=== PATIENT | male | born 1940 | race Caucasian/White ===

== ENCOUNTER → 2020-09-06 08:49 | Outpatient (CLI) | payer MEDICARE, SELFPAY ==
--- NOTE | ~2020-09-06 | CT_ITS ---
EXAMINATION: CT abdomen pelvis wo/w con DATE: 09/06/2020 09:37 INDICATION: Gross hematuria TECHNIQUE: Computed tomography (CT) of the abdomen and pelvis was performed without and subsequently with 130 cc Omnipaque 350 intravenous contrast. Automated exposure control and iterative reconstructi on technique were employed. Exam dose: 1551.80 mGy-cm total exam DLP. COMPARISON: None. FINDINGS: Bilateral small fat-containing foramen of Bochdalek hernias. Minimal bilateral dependent lower lobe atelectasis. Mild discoid atelectasis or scarring at the base of the lingula. No infiltrate or consolidation at the lung bases. Cardiomegaly. Coronary artery atherosclerotic calcification. Trace pericardial fluid. No pleural effu joyce. 1.3 cm hepatic cyst. The gallbladder is present. No bile duct or pancreatic duct dilatation. 2 cm prominently calcified upper anterior pole left right renal calcified lesion. 5 cm upper pole right renal cyst and multiple smaller right renal cysts.. 2 cm lower pole left renal cyst, occasional smaller left renal cysts. There are 2 pinpoint nonobstructing calculi of the right kidney and one pinpoint nonobstructing calcu anna of the left kidney. Normal caliber and atherosclerotic calcification of the abdominal aorta. No abdominal aortic aneurysm . No intraperitoneal or retroperitoneal or pelvic mass lesion or adenopathy or ascites. Prominent pro state enlargement impressing the base of the urinary bladder. Moderate diffuse bladder wall thickenin g. Normal appendix. Mild diverticulosis of the colon; no CT evidence of diverticulitis. No bowel obstruc tion, bowel wall thickening, pneumatosis or intraperitoneal free air. Moderately severe degenerative disc disease at L3-4. Degenerative changes apophyseal joints with associated grade 1 anterolisthesis at L4-5. No suspicious osteolytic or osteoblastic lesions are noted. IMPRESSION: Multiple bilateral renal cysts Probable benign primarily calcified 2 cm upper pole right renal lesion 1.3 cm hepatic cyst Mild bilateral nonobstructive punctate nephrolithiasis Prominent prostate enlargement and associated moderate diffuse bladder wall thickening Diverticulosis of the colon; no CT evidence of diverticulitis Reviewed, dictated and finalized at [facility]. Reviewed, dictated and finalized at location A. IMPRESSION: Multiple bilateral renal cysts Probable benign primarily calcified 2 cm upper pole right renal lesion 1.3 cm hepatic cyst Mild bilateral nonobstructive punctate nephrolithiasis Prominent prostate enlargement and associated moderate diffuse bladder wall thi ckening Diverticulosis of the colon; no CT evidence of diverticulitis
[2020-09-06 09:13] LABS: Estimated Glomerular Filt Rate > 60
== END ==
PROVIDERS: PCP Family Medicine Adolescent Medicine; Visit Provider Urology
DX: R31.0 Gross hematuria (principal); N28.1 Cyst of kidney, acquired; K76.89 Other specified diseases of liver; N20.0 Calculus of kidney; N40.0 Benign prostatic hyperplasia without lower urinary tract symptoms; R93.41 Abnormal radiologic findings on diagnostic imaging of renal pelvis, ureter, or bladder; K57.90 Diverticulosis of intestine, part unspecified, without perforation or abscess without bleeding
CPT/HCPCS: 74178; Q9967

== ENCOUNTER → 2020-12-04 09:44 | Outpatient (CLI) | payer MEDICARE, SELFPAY ==
--- NOTE | ~2020-12-04 | MR_ITS ---
EXAMINATION: MR abdomen wo/w con INDICATION: Acquired cyst of the kidney, gross hematuria TECHNIQUE: Coronal SSFSE ARC, WATER:coronal LAVA-FLEX, Coronal 2D FIESTA FatSat, Axial SSFSE BH ARC, Axial 3D DualEcho BH, Axial SSFSE-IR, Axial DWI b=500, Axial 2D FIESTA FatSat, pre and dynamic postco ntrast Axial LAVA ARC, postcontrast Coronal In and Opposed phase LAVA FLEX COMPARISON: CT, 09/06/2020 CONTRAST: Multihance, 15 cc FINDINGS: The visualized lung bases are clear. The heart size is normal. There is a 12 mm cyst of the right hepatic lobe. The spleen, pancreas, gallbladder, and left adrenal gland are normal. There is a 10 mm mass of the left adrenal gland with loss of signal intensity on opposed phase imaging, consist ent with an adenoma. There are multiple cysts of the kidneys many of which are simple. Small bilatera l hemorrhagic cysts are seen which measure up to 9 mm on the left. There is a 1.8 cm peripherally jaylen cified cyst of the right kidney upper pole which does not demonstrate definite internal enhancement a fter contrast administration. There are no pathologically enlarged abdominal lymph nodes. No dilated loops of bowel are evident. IMPRESSION: 1. 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 Follow-up MRI without and with contrast in six months is recommended. Reviewed, dictated and finalized at location B.
[2020-12-04 10:37] LABS: Estimated Glomerular Filt Rate > 60
== END ==
PROVIDERS: PCP Family Medicine Adolescent Medicine; Visit Provider Urology
DX: N28.1 Cyst of kidney, acquired (principal)
CPT/HCPCS: 74183; A9577

== ENCOUNTER → 2021-06-25 09:27 | Outpatient (CLI) | payer MEDICARE, SELFPAY ==
--- NOTE | ~2021-06-25 | MR_ITS ---
EXAMINATION: MR abdomen wo/w con DATE: 06/25/2021 10:53 INDICATION: Right kidney mass. TECHNIQUE: Magnetic resonance imaging (MRI) of the abdomen was performed without and with 15 mL Multi Makenzie intravenous contrast. Sequences included coronal T2-weighted FS FSE, coronal and axial FIESTA F S, coronal LAVA-flex, axial LAVA, axial T2-weighted FSE, axial T1-weighted dual-echo FSPGR, axial STI R FSE, and axial DWI. Postcontrast sequences included coronal LAVA-flex and a time course of axial LA VA. COMPARISON: Abdomen MRI 12/04/2020, CT abdomen and pelvis 09/06/2020 FINDINGS: There is a 16 mm cyst of the liver. The gallbladder is normal. Again seen are multiple masses in the spleen measuring up to 8 mm, likely benign. The gallbladder, pancreas, and left adrenal gland are nor mal. There is a 10 mm mass in right adrenal gland containing microscopic fat, consistent with an ceci ranjit. There are cysts in the kidneys measuring up to 5.4 cm on the right. In the right kidney, there i s a 1.8 cm mass with thick calcifications without contrast enhancement. There are hemorrhagic cysts i n the kidneys measuring up to 11 mm on the left. There are no pathologically enlarged lymph nodes. Th ere are no dilated loops of bowel. There is no free intraperitoneal fluid. IMPRESSION: 1. 1.8 cm Bosniak IIF cystic lesion of right kidney, stable from 12/04/2020. Abdomen MRI without and with contrast is recommended in 6 months. Reviewed, dictated and finalized at location E. [employer] IMPRESSION: 1. 1.8 cm Bosniak IIF cystic lesion of right kidney, stable from 12/04/2020. Ab domen MRI without and with contrast is recommended in 6 months.
[2021-06-25 10:12] LABS: Estimated Glomerular Filt Rate > 60
== END ==
PROVIDERS: PCP Family Medicine Adolescent Medicine; Visit Provider Urology
DX: N28.1 Cyst of kidney, acquired (principal)
CPT/HCPCS: 74183; A9577

== ENCOUNTER → 2022-01-02 10:43 | Outpatient (CLI) | payer MEDICARE, SELFPAY ==
--- NOTE | ~2022-01-02 | US_ITS ---
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 COMPARISON: MRI, 06/25/2021 FINDINGS: The right kidney measures 11.1 x 5.9 x 6.3 cm and contains a 4.9 cm cyst in the upper pole. The right kidney mass described on the comparison MRI is not definitely demonstrated. The left kidne y measures 13.4 x 5.7 x 6.1 cm and contains cysts measuring up to 2.5 cm. The kidneys demonstrate nor mal parenchymal echogenicity. The prostate is enlarged. There is no hydronephrosis. The bladder is no rmal. IMPRESSION: 1. 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 Follow-up by CT or MRI without and with contrast would provide a more direct comparison. Reviewed, dictated and finalized at location A. IMPRESSION: 1. Previously described Bosniak IIF lesion of the right kidney not definitely d emonstrated, more likely due to differences in technique given the MR and CT fe atures of the mass rather than interval resolution. Follow-up by CT or MRI with out and with contrast would provide a more direct comparison.
== END ==
PROVIDERS: PCP Family Medicine Adolescent Medicine; Visit Provider Urology
DX: N28.1 Cyst of kidney, acquired (principal)
CPT/HCPCS: 76775

== ENCOUNTER 2022-01-22 09:05 | Outpatient (CLI) | payer MEDICARE, SELFPAY ==
[2022-01-22 09:42] LABS: Anion Gap 7 mmol/L (8-16); Blood Urea Nitrogen 25 mg/dL (9-20); Calcium 9.3 mg/dL (8.4-10.2); Carbon Dioxide 28 mmol/L (22-30); Chloride 105 mmol/L (98-107); Estimated Glomerular Filt Rate > 60; Glucose 87 mg/dL (65-110); Potassium 4.3 mmol/L (3.4-5.0); Sodium 140 mmol/L (137-145)
== END 2022-01-22 09:06 | disposition home or self-care (01) ==
LOC: ANHLAB 09:08
PROVIDERS: PCP Family Medicine Adolescent Medicine; Visit Provider Urology
DX: N28.1 Cyst of kidney, acquired (principal)
CPT/HCPCS: 36415; 80048

== ENCOUNTER 2022-01-23 08:40 | Outpatient (CLI) | payer MEDICARE, SELFPAY ==
--- NOTE | ~2022-01-23 | CT_ITS ---
EXAMINATION: CT abdomen wo/w con DATE: 01/23/2022 09:13 INDICATION: Renal cyst TECHNIQUE: Computed tomography (CT) of the abdomen and pelvis was performed without and with 100 mL O mnipaque-350 intravenous contrast. Automated exposure control and iterative reconstruction technique were employed. The dose-length product was 756.34 mGy-cm. COMPARISON: MRI dated 07/05/[address] dated 09/06/2020 FINDINGS: Mild discoid atelectasis at the posterior sulci of the bilateral lower lobes. Small bilateral posteri or fat-containing Bochdalek hernias. Cardiomegaly. Atherosclerotic coronary artery calcification. No pericardial or pleural effusion. 1.7 cm hepatic cyst. There are few tiny splenic calcifications consi stent with old granulomatous disease. No interval change in a couple subtle subcentimeter low-attenua tion lesions in the spleen, likely benign. Gallbladder, pancreas and left adrenal gland are normal. U nchanged 1 cm right adrenal adenoma with characteristic signal dropout on opposed phase imaging on pr ior MRI. Multiple bilateral low-attenuation nonenhancing renal cysts, the largest measuring 5.6 cm th e upper pole of the right kidney. A couple hyperdense proteinaceous/hemorrhagic cysts measuring 8 mm at the interpolar region of the left kidney and 5 mm at the lower pole of the right kidney. Unchanged 1.8 cm exophytic lesion at the upper pole of the left kidney with dense peripheral coarse calcificat ion without definitive enhancing solid component. A few <2 mm nonobstructing stones in a middle calyx of the right kidney and at a couple lower pole calyces of the left kidney. No hydronephrosis. There are few scattered colonic diverticula without adjacent inflammatory change to suggest diverticulitis. No bowel obstruction. Visualized portion of the appendix is normal. No pathologically enlarged abdom inal or pelvic pelvic lymphadenopathy. Moderate lumbar spondylosis. IMPRESSION: 1. No interval change in a Bosniak 2F 1.8 cm cystic lesion at the upper pole of the right kidney with peripheral thick coarse calcifications. 2. Bilateral nonobstructing nephrolithiasis. Reviewed, dictated and finalized at location A.
== END 2022-01-23 08:41 | disposition home or self-care (01) ==
PROVIDERS: PCP Family Medicine Adolescent Medicine; Visit Provider Urology
DX: N20.0 Calculus of kidney (principal); K44.9 Diaphragmatic hernia without obstruction or gangrene; I25.10 Atherosclerotic heart disease of native coronary artery without angina pectoris; I51.7 Cardiomegaly; M47.816 Spondylosis without myelopathy or radiculopathy, lumbar region
CPT/HCPCS: 74170; Q9967

== ENCOUNTER 2022-09-26 10:11 | Outpatient (CLI) | payer MEDICARE, SELFPAY ==
--- NOTE | ~2022-09-26 | US_ITS ---
EXAMINATION: US retroperitoneal duplex ltd DATE: 09/26/2022 12:38 CDT INDICATION: Essential hypertension. TECHNIQUE: Sonographic imaging of the kidneys was performed with a 3.5 MHz transducer. Retroperitone al duplex sonogram of the renal arteries also obtained. FINDINGS: No focal flow abnormalities are seen in the renal arteries on color Doppler. The peak syst olic velocity ranges of the right and left renal arteries and aorta are 72 cm per second, 86 cm per s econd, and 122 cm per second, respectively. The velocities and renal to aortic ratios are within norm al limits. IMPRESSION: 1. No Doppler evidence of renal artery stenosis. Reviewed, dictated and finalized at location L.
== END 2022-09-26 10:12 | disposition home or self-care (01) ==
PROVIDERS: PCP Family Medicine Adolescent Medicine; Visit Provider Family Medicine Adolescent Medicine
DX: I10 Essential (primary) hypertension (principal)
CPT/HCPCS: 93976

== ENCOUNTER → 2023-02-05 10:11 | Outpatient (CLI) | payer MEDICARE, SELFPAY ==
--- NOTE | ~2023-02-05 | CT_ITS ---
CT of the Abdomen: Indication: Renal cyst Technique: 2.5 mm axial scans were obtained through the abdomen prior to and following intravenous a dministration of 100 cc of Omnipaque 350. Dose reduction technique was used on this scan by utilizing automated exposure control and iterative reconstruction technique. The dose-length product (DLP) was 878.65 mGy-cm. COMPARISON: 01/23/2022 Findings: Scans through the lung bases are unremarkable. Small hepatic cyst present. The spleen, pancreas, and gallbladder are within normal limits. Small sivan ateral adrenal nodules are stable from prior exam. Bilateral renal cysts are present, stable from juwan or exam. There is one cyst or other lesion at the upper pole the right kidney with large coarse calci fications, unchanged. Punctate nonobstructing bilateral renal stones are noted. There are atheroscler otic calcifications of the aorta. No lymphadenopathy. Visualized bowel loops are unremarkable. No ascites. Impression: Stable benign-appearing bilateral renal cystic lesions. Punctate nonobstructing bilateral renal stones. Reviewed, dictated and finalized at [facility]. Impression: Stable benign-appearing bilateral renal cystic lesions. Punctate nonobstructing bilateral renal stones.
[2023-02-05 10:31] LABS: Estimated Glomerular Filt Rate > 60
== END ==
PROVIDERS: PCP Family Medicine Adolescent Medicine; Visit Provider Urology
DX: N28.1 Cyst of kidney, acquired (principal); N20.0 Calculus of kidney
CPT/HCPCS: 74170; Q9967

== ENCOUNTER 2023-10-17 08:47 | Outpatient (CLI) | payer MEDICARE, SELFPAY ==
--- NOTE | ~2023-10-17 | XR_ITS ---
XR knee LT min 4V 10/17/2023 09:01 Indication: Left knee pain Procedure: 4 views left knee Comparison: No prior studies for comparison. Findings: There is a joint effusion. There is moderate-severe tricompartment osteoarthritis of the le ft knee. No foreign bodies. 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 Reviewed, dictated and finalized at location B. Impression: 1: Moderate-severe tricompartment osteoarthritis of the left knee, most advance d in the medial compartment.
== END 2023-10-17 08:48 ==
LOC: MICIMG 08:48
PROVIDERS: PCP Orthopaedic Surgery; Visit Provider Family Medicine Adolescent Medicine
DX: M17.12 Unilateral primary osteoarthritis, left knee (principal)
CPT/HCPCS: 73564

== ENCOUNTER 2024-02-19 18:20 | Emergency (ER) | payer MEDICARE, SELFPAY ==
--- NOTE | ~2024-02-19 | CT_ITS ---
EXAMINATION: CT facial & cervical spine wo DATE: 02/19/2024 20:07 INDICATION: Head injury. TECHNIQUE: Computed tomography (CT) of the maxillofacial region and cervical spine was performed with out intravenous contrast. Automated exposure control and iterative reconstruction technique were empl oyed. The dose-length product was 503.87 mGy-cm. COMPARISON: None FINDINGS: MAXILLOFACIAL CT: There are likely changes of left ocular lens replacement surgery. There are fractures of the nasal chris clay, nasal processes of maxilla, nasal septum. There is rightward deviation of superior nasal septum and leftward deviation of the inferior nasal septum. There is fluid and mucosal thickening in the par anasal sinuses and nasal cavity. CERVICAL SPINE CT: There are nodules in the thyroid measuring up to 18 mm. There is 9 degrees levocurvature of cervicoth oracic spine. There is 2 mm anterolisthesis of C4 on C5 and C7 on T1. Vertebral body heights are norm al. There is mildly decreased disc height at C2-C3, C3-C4, and C4-C5, severely decreased disc height at C5-C6 and C6-C7, and mildly decreased disc height at C7-T1. The following disc levels are specific ally discussed: C2-C3: There is mild bilateral uncovertebral joint osteoarthritis. There is moderate and severe left facet joint osteoarthritis. There is mild left neural foraminal stenosis. There is no central canal s tenosis. C3-C4: There is mild right and moderate left uncovertebral joint osteoarthritis. There is severe bila teral facet joint osteoarthritis. There is mild bilateral neural foraminal stenosis. There is no cent ral canal stenosis. C4-C5: There is mild bilateral uncovertebral joint osteoarthritis. There is severe bilateral facet chris int osteoarthritis. There is mild bilateral neural foraminal stenosis. There is mild central canal st enosis. C5-C6: There is severe bilateral uncovertebral joint osteoarthritis. There is moderate right and danica re left facet joint osteoarthritis. There is mild bilateral neural foraminal stenosis. There is mild central canal stenosis. C6-C7: There is severe bilateral uncovertebral joint osteoarthritis. There is severe bilateral facet joint osteoarthritis. There is moderate bilateral neural foraminal stenosis. There is mild central ca nal stenosis. C7-T1: There is no uncovertebral joint osteoarthritis. There is severe bilateral facet joint osteoart hritis. There is mild bilateral neural foraminal stenosis. There is no central canal stenosis. IMPRESSION: 1. Fractures of the nasal bones, nasal processes of maxilla, and nasal septum. 2. Severe cervical spondylosis. Reviewed, dictated and finalized at location A.
--- NOTE | ~2024-02-19 | CT_ITS ---
EXAMINATION: CT brain wo con DATE: 02/19/2024 20:07 INDICATION: Head injury. TECHNIQUE: Computed tomography (CT) of the head was performed without intravenous contrast. The mA wa s adjusted according to patient size. Iterative reconstruction technique was employed. The dose-lengt h product was 681.00 mGy-cm. COMPARISON: Head CT 08/07/2018 FINDINGS: There are scattered areas of low attenuation in the cerebral white matter, which is within normal limits for the patient's age. There is no intracranial hemorrhage, acute infarction, or abnorm al intracranial mass lesion. The ventricles are normal in size. There is mucosal thickening in the pa ranasal sinuses and nasal cavity. The mastoid air cells are normal. There are likely changes of left ocular lens replacement surgery. IMPRESSION: 1. Normal aging brain. Reviewed, dictated and finalized at location A. IMPRESSION: 1. Normal aging brain.
[2024-02-19 18:26] VITALS: BP 148/84; PULSE 81; RESP 17; TEMP 36.4; O2SAT 97
[2024-02-19] MEDS: OXYMETAZOLINE HCL 0.05% NAS 15 ML BTL (*BKC) 1 SPRAY NASAL (18:52)
--- NOTE | 2024-02-19 18:54 | ED.EPISTAXIS ---
HPI - Epistaxis General Chief complaint: Epistaxis <Warren Beard PA-C - Last Filed: 02/20/24 03:35> Stated complaint: fell on thinners, uncontrolled nose bleed <Warren Beard PA-C - Last Filed: 02/20/24 03:35> Time Seen by Provider: 02/19/24 18:41 <Warren Beard PA-C - Last Filed: 02/20/24 03:35> Source: patient <LAURYN Chau Last Filed: 02/20/24 03:35> Mode of arrival: ambulatory <LAURYN Chau Last Filed: 02/20/24 03:35> Limitations: no limitations <LAURYN Chau Last Filed: 02/20/24 03:35> History of Present Illness HPI Narrative: This is a 84-year-old male who presents to the ED for chief complaint of epistaxis beginning around 14 30 this afternoon after a fall. Reports that he tripped and fell onto his face causing the bleed. He is on dual antiplatelet as well as rivaroxaban for history of stroke and AFib. Denies LOC, numbness, weakness or any further site of injury. Denies nasal pain, headache, facial pain. Denies ear pain or loss of hearing. <Warren Beard PA-C - Last Filed: 02/20/24 03:35> Related Data Home medications: Home Medications Medication Instructions Recorded Confirmed rivaroxaban 20 mg tablet (Xarelto) 20 mg PO DAILY 10/22/21 11/19/23 magnesium aspart,citrate,oxide 400 mg PO BID 03/06/22 11/19/23 multivitamin 1 tablet PO DAILY 03/06/22 11/19/23 riboflavin (vitamin B2) 100 mg 100 mg PO BID 03/06/22 11/19/23 tablet butterbur root extract 50 mg 100 mg PO BID 09/05/22 11/19/23 capsule <LAURYN Chau Last Filed: 02/20/24 03:35> Allergies/adverse reactions: Allergies Allergy/AdvReac Type Severity Reaction Status Date / Time mercury (elemental) Allergy Unknown BLISTERS Verified 02/19/24 18:22 shellfish derived Allergy Unknown Other Verified 02/19/24 18:22 Contrast Media Allergy Severe VOMITING Uncoded 02/19/24 18:22 bupropion AdvReac Intermediate Headache Uncoded 02/19/24 18:22 <Warren Beard PA-C - Last Filed: 02/20/24 03:35> Review of Systems Review of Systems: All systems as dictated in HPI <LAURYN Chau Last Filed: 02/20/24 03:35> PMFSH Surgical History Surgical History: Surgical History History of total right knee replacement (2019) <LAURYN Chau Last Filed: 02/20/24 03:35> Family History Family History: Family History Sibling Depression Other Cerebrovascular accident <LAURYN Chau Last Filed: 02/20/24 03:35> Social History Social History: Social History Smoking status: Never smoker Second hand tobacco smoke exposure: No Alcohol intake: never Substance use: never Substance use type: does not use Lack of Transportation: No Lack of Food: Never True Current Housing: I Have Housing Concerned About Future Housing: No Difficulty Paying Gas/Electric Bills: No Difficulty Paying for Meds: No Currently Unemployed: No Education: High School Diploma/GED Difficulty w/ Childcare or Family Care: No Living arrangements: with family Occupation/Education: retired Gender identity (if verbalized by the patient): Male Sexual Orientation (if Verbalized by the Patient): Straight or Heterosexual Spiritual care concerns: No Agree to blood products: Yes <LAURYN Chau Last Filed: 02/20/24 03:35> Exam Narrative: GENERAL: Well-appearing, well-nourished, and in no acute distress. HEAD: Normocephalic, atraumatic. EYES: PERRLA and EOMI. ENT: Epistaxis present, worse on the right. Skin dripping of blood on the left with more oozing of blood on the right with nasal clamp placed. Posterior oropharynx has mild postnasal bleeding. No large clots seen. Oropharynx without tonsillar hypertrophy exudate or other lesions. Airway intact. NECK: Supple.
[2024-02-19 19:06] LABS: Basophils Absolute Auto 0.1 K/mm3 (0.0-0.1); Basophils Percent Auto 0.8 % (0.2-1.2); Eosinophils Absolute Auto 0.2 K/mm3 (0-0.3); Eosinophils Percent Auto 1.9 % (0-4.4); Hematocrit 42.2 % (42.0-52.0); Hemoglobin 14.4 g/dL (14.0-18.0); Immature Granulocyte Absolute 0.05 K/mm3 (0.00-0.031); Immature Granulocyte Percent A 0.4 % (0-0.5); Lymphocytes Absolute Auto 1.06 K/mm3 (0.9-3.2); Lymphocytes Percent Auto 9.1 % (18.3-44.2); Mean Corpuscular HGB Conc 34.1 g/dl (32-36); Mean Corpuscular Hemoglobin 32.4 pg (26-34); Mean Corpuscular Volume 94.8 fl (80-100); Mean Platelet Volume 9.5 fl (7.4-10.4); Monocytes Absolute Auto 0.9 K/mm3 (0.1-0.6); Monocytes Percent Auto 7.3 % (2.6-8.5); Neutrophils Absolute Auto 9.3 K/mm3 (1.3-6.7); Neutrophils Percent Auto 80.5 % (45.5-73.1); Platelet Count Result 217 k/mm3 (150-375); Red Blood Count 4.45 M/mm3 (4.6-6.20); Red Cell Distribution Width 13.8 % (11.5-14.5); White Blood Count 11.6 K/mm3 (4.5-10.0)
[2024-02-19 19:18] LABS: Alanine Aminotransferase 28 U/L (6-50); Albumin Level 4.5 g/dL (3.5-5.1); Alkaline Phosphatase 52 U/L (38-126); Anion Gap 9 mmol/L (4-12); Aspartate Amino Transferase 41 U/L (17-59); Bilirubin,Total 1.4 mg/dL (0.2-1.3); Blood Urea Nitrogen 27 mg/dL (9-20); Calcium 9.7 mg/dL (8.4-10.2); Carbon Dioxide 25 mmol/L (22-30); Chloride 104 mmol/L (98-107); Estimated CRCL calculation 61 ml/min; Estimated Glomerular Filt Rate > 60; Glucose 151 mg/dL (65-110); INR 1.3; Potassium 4.3 mmol/L (3.4-5.0); Prothrombin Time 16.4 Seconds (11.1-14.7); Sodium 138 mmol/L (137-145)
[2024-02-19 19:19] LABS: Partial Thromboplastin Time 27.4 Seconds (22.3-36.8)
[2024-02-19 20:20] VITALS: BP 112/64; PULSE 59; RESP 15; O2SAT 95
[2024-02-19] MEDS: ACETAMINOPHEN 500 MG TABLET 1000 MG PO (21:42)
[2024-02-19 23:07] VITALS: BP 168/90; PULSE 80; RESP 16; O2SAT 97
== END 2024-02-20 00:25 | disposition short-term general hospital (02) ==
PROVIDERS: Emergency Provider Physician Assistant; PCP Family Medicine Adolescent Medicine
DX: S02.2XXA Fracture of nasal bones, initial encounter for closed fracture (principal); R04.0 Epistaxis; I48.91 Unspecified atrial fibrillation; Z86.73 Personal history of transient ischemic attack (TIA), and cerebral infarction without residual deficits; Z96.651 Presence of right artificial knee joint; Z79.01 Long term (current) use of anticoagulants; Z79.02 Long term (current) use of antithrombotics/antiplatelets; M47.812 Spondylosis without myelopathy or radiculopathy, cervical region; W01.0XXA Fall on same level from slipping, tripping and stumbling without subsequent striking against object, initial encounter
CPT/HCPCS: 30901; 30903; 36415; 70450; 70486; 72125; 80053; 85025; 85610; 85730; 99284; 99285; A9270